=== PATIENT | female | born 1960 | race Caucasian/White ===

== ENCOUNTER → 2016-12-15 | Outpatient (REF) | payer BC | LOC: M SFHCWAGY 09:48 | PROVIDERS: ATTEND Nurse Practitioner Women's Health | DX: Z12.4 Encounter for screening for malignant neoplasm of cervix (principal); R87.610 Atypical squamous cells of undetermined significance on cytologic smear of cervix (ASC-US); R87.612 Low grade squamous intraepithelial lesion on cytologic smear of cervix (LGSIL); N95.2 Postmenopausal atrophic vaginitis ==

== ENCOUNTER → 2016-12-15 | Outpatient (CLI) | payer BC ==
--- NOTE | 2016-12-15 11:32 | REPMRS ---
Patient History The patient states she had a clinical breast exam in 11/2016. Patient is postmenopausal and has history of other cancer at age 50. Family history of breast cancer in maternal grandmother at age 50 or over. Took hormonal contraceptives for 20 years. Digital Woman Screen Mammo: December 15, 2016 - Exam #: [id number] Bilateral CC and MLO view(s) were taken. Technologist: Madiha Jacobsen, Technologist Prior study comparison: November 28, 2015, digital woman screen mammo performed at [facility]. November 28, 2014, digital woman screen mammo performed at [facility]. November 24, 2013, digital woman screen mammo performed at [facility]. FINDINGS: There are scattered fibroglandular densities. There has been no change in the appearance of the mammogram from the prior studies. There is a mild amount of scattered fibroglandular density which is fairly symmetric. There is no interval development of dominant mass, architectural distortion, or clustered microcalcification suggestive of malignancy. ASSESSMENT: BI-RADS/ACR category 1 mammogram. Negative. Recommendation Routine screening mammogram in 1 year (for women over age 40). This mammogram was interpreted with the aid of an FDA-approved computer-aided dectection system. Electronically Signed By: Bart Murcia MD 12/15/16 [id number]
== END ==
LOC: M WHC 09:34
PROVIDERS: ATTEND Nurse Practitioner Women's Health
DX: Z12.31 Encounter for screening mammogram for malignant neoplasm of breast (principal)

== ENCOUNTER → 2017-01-12 | Outpatient (REF) | payer BC | LOC: M SFHCWAGY 13:32 | PROVIDERS: ATTEND Nurse Practitioner Women's Health | DX: R87.612 Low grade squamous intraepithelial lesion on cytologic smear of cervix (LGSIL) (principal) ==

== ENCOUNTER 2025-07-12 09:46 | Day surgery (SDC) | payer BC, MEDICARE ==
[~2025-07-12] VITALS: Ht 157.5 cm; Wt 44.0 kg
[~2025-07-12 09:46] MED LIST: ACETAMINOPHEN 1000MG/100ML IV BAG As Ordered ONE; ALEN70TA87 PO; LIDOCAINE 2% 100 MG/5 ML SDV (FOR ANES.) As Ordered ONE; MIDAZOLAM INJ 2 MG/2 ML VIAL As Ordered ONE; ONDANSETRON 4MG 2ML VIAL As Ordered ONE; dexAMETHasone 4 MG/ML 1 ML VIAL As Ordered ONE
[2025-07-12] MEDS ORDERED: KETOROLAC 30 MG/ML 1 ML VIAL As Ordered ONE (11:46)
[2025-07-12] MEDS ORDERED: CEPH500C PO (12:28)
[2025-07-12] MEDS ORDERED: PERC5TAB12 PO (12:28)
[2025-07-12] MEDS ORDERED: HYDROMORPHONE HCL 0.5 MG/0.5 ML SYRINGE IV PRN (12:40)
[2025-07-12] MEDS: HYDROMORPHONE HCL 0.5 MG/0.5 ML SYRINGE IV PRN (12:57)
[2025-07-12] MEDS: ONDANSETRON 4MG 2ML VIAL IV PRN (12:58)
[2025-07-12 13:55] VITALS: BP 138/64; TEMP 97.6; O2SAT 98
== END 2025-07-12 14:27 | disposition home or self-care (01) ==
LOC: M SDC 09:46
PROVIDERS: ATTEND Orthopaedic Surgery Hand Surgery
DX: S62.604A Fracture of unspecified phalanx of right ring finger, initial encounter for closed fracture (principal); S62.306A Unspecified fracture of fifth metacarpal bone, right hand, initial encounter for closed fracture; Z88.5 Allergy status to narcotic agent
CPT/HCPCS: 26615; 26727; 76000; C1713; J0131; J0665; J0688; J1100; J1171; J1885; J2250; J2405; J3010